=== PATIENT | male | born 1965 | race Caucasian/White ===

== ENCOUNTER 2024-04-05 08:03 | Outpatient (CLI) | payer MEDICAID, SELFPAY | END 2024-04-05 08:04 | disposition home or self-care (01) | PROVIDERS: PCP Internal Medicine; Visit Provider Internal Medicine | DX: E78.5 Hyperlipidemia, unspecified (principal); I10 Essential (primary) hypertension; Z12.5 Encounter for screening for malignant neoplasm of prostate | CPT/HCPCS: 80053; 80061; G0103 ==

== ENCOUNTER 2024-07-11 21:09 | Outpatient (CLI) | payer MEDICAID, SELFPAY ==
--- NOTE | 2024-07-19 12:03 | W.PM.SLEEP ---
Sleep Study Details Details Interpreting Provider: Stephenie Date of Sleep Study: 07/11/24 Sleep Study Details: STUDY TYPE:? Hospital-based, attended, CPAP titration ? BMI:? 40.2 ORDERING PROVIDER:? Tiffany INDICATION:? Concern about sleep apnea ? SLEEP SUMMARY:? 211 minutes total sleep time RESPIRATORY SUMMARY:? Mean oxygen awake 94 asleep 91 minimum 78 7.6 minutes oxygen between 80 and 88% AHI 20.6 per CMS guideline, 33 per rule 1A REM AHI was 85. Note entire study was done in the nonsupine position for the diagnostic portion CPAP titration was performed up to a pressure of 6 which decreased AHI to 0 per CMS guideline and 4.4 for rule 1A and included nonsupine REM sleep. PERIODIC LIMB MOVEMENTS OF SLEEP:? Pre treatment index 14.4, index with arousal 0 Post treatment index 62.2, index with arousal 1.3 CARDIAC:? Cardiac awake 72 asleep 69 no arrhythmias noted IMPRESSION:? Severe obstructive sleep apnea with significant REM dependency. The study was done in the nonsupine position. CPAP titration was effective at obtaining nonsupine REM sleep and controlling all apneas at a pressure of 6 RECOMMENDATION: Initiate AutoSet CPAP at a pressure of 5-17. Weight loss is also recommended
== END 2024-07-11 21:10 | disposition home or self-care (01) ==
PROVIDERS: PCP Internal Medicine; Visit Provider Otolaryngology
DX: G47.33 Obstructive sleep apnea (adult) (pediatric) (principal)
CPT/HCPCS: 95811

== ENCOUNTER 2024-10-28 16:30 | Outpatient (RCR) | payer MEDICAID, SELFPAY ==
--- NOTE | 2024-09-23 17:37 | PT.OPEX ---
[facility] Outpatient Eval PT [facility] Outpatient Eval Start: 09/23/24 15:13 Freq: Status: Active Protocol: Document 09/23/24 15:13 VMS (Rec: 09/23/24 17:31 VMS [id number]) E-signed By Leatha Curtis Physical Therapy Outpatient Evaluation Insurance Information Recert Due Date 12/16/24 Insurance Name Medicaid Medical Diagnosis Achilles Insertional Tendinopathy Treating Diagnosis L calf/ankle pain Muscle weakness Imaging Report X-rays 08/31/2024: Information Demonstrate 2 heel spurs on posterior calcaneus. 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 Alas is a 59 year M with complaints of L achilles/heel pain. He presents today in a walking boot. Date of onset: Initially started 3 years ago but that episode resolved without intervention. A couple of months ago is when most current episode started. Aggravating Factors: walking, standing for extended periods of time, climbing ladders, stairs, first few steps in the morning or after rest Easing Factors: rest, stay off of foot, heat, ibuprofen , prescribed anti-inflammatory. Tried steroid 3 weeks ago which did not help Method of Injury: Insidious Radiation: Denies Numbness / Tingling: Denies Progression: same Falls: Denies History of Ankle Injuries: Denies Review of Systems: History obtained from chart review, health history form, and the patient. I am only responding to those symptoms which are directly relevant to my consultation. Recommend the patient follow up with their primary/referring provider for other symptoms. 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 not Objective Other/Pertinent Functional Tests: Objective Gait: no PF on L side, increased trunk sway, decreased stance time on L CKC DF: R: 4 cm; L: 2 cm Palpation: tender to palpation on posterior calcaneus, slight tenderness throughout medial and lateral ankles below malleoli but no tenderness in proximal achilles tendon Edema: Figure of Eight --R: 63 cm; L: 64.5 cm JPA: Talocrural: Anterior: WFL bilat Posterior: WFL bilat Distraction: WFL bilat Subtalar: Lateral: WFL bilat Medial: WFL bilat PROM: Ankle: PF: R: 41 deg: L: 30 deg DF (straight knee/gastroc): R: -10 deg; L: -10 deg DF (bent knee): R:10 deg ;L: -1 deg Eversion: R: 15 deg; L: 10 deg Inversion: R: 30 deg; L: 30 deg Strength: Ankle: PF: R: 5/5; L: 4/5 DF: R: 5/5; L: 4-/5 Eversion: 5/5 bilat Inversion: 5/5 bilat Knee: Quadriceps: 5/5 bilat Hamstrings: 5/5 bilat Hip: IR: 5/5 bilat ER: 5/5 bilat Flexion: 5/5 bilat Special Tests: Achilles Tendinopathy: Muscle trifecta: (+) Painful arc sign (+) Manzanares test (-) Inversion Ankle Sprain: Anterior drawer: (-) Talar tilt test:(-) Inversion stress test: (-) ER stress test (high):(-) Squeeze test (high):(-) Achilles Rupture: Manzanares test: (-) Gap test: (-) Functional Test LEFS: 40 / 80 = 50.0 % Performed & Score Assessment Assessment/ 2024-09-23: Initial Evaluation Assessment & PT Impression Impression: Mr. Alas is a pleasant 59 year male presenting to outpatient physical therapy with primary complaint of L achilles pain. Pertinent physical examination findings include tenderness to palpation at the superior and inferior aspects of the calcaneus, pain with AROM into pf/df, impaired DF/PF ROM, impaired CKC DF, and ankle weakness. Functionally, the patient is limited in activities including standing, walking, climbing ladders, ascending/descending stairs and participation in work-related activities. He requires skilled physical therapy in order to address the above impairments, improve patients symptom status, and assist him in returning to his prior level of function. Barriers to Learning: None Primary Functional standing, walking, navigating stairs, climbing ladders, Limitations work-related activities Plan of Care Rehabilitation Good Potential Physical Therapy STG: Goals 1. Patient will be independent with HEP by the end of 4 weeks. 2. Patient will demonstrate improved gastroc length as demonstrated by an increase in at least 10 deg of PROM DF by the end of 4 weeks. LT. Patient will demonstrate at least 9 point increase ( MCID) in LEFS score by the end of 12 weeks to demonstrate improved overall function. 2. Patient will demonstrate improved bilateral gastroc length by at least 20 deg by the end of 12 weeks to demonstrate improved overall function. 3. Patient will be able to walk for at least 30 min with no greater than 3/10 pain by the end of 12 weeks. 4. Patient will be able to drive for at least 2 hours with no greater than 3/10 pain upon first steps by the end of 12 weeks. 5. Patient will be able to navigate stairs reciprocally with no greater than 3/10 pain by the end of 12 weeks. 6. Patient will be able to climb ladder with no greater than 3/10 pain by the end of 12 weeks. Coordination/ Referral Source Communication With Treatment Plan/ Joint Mobilization,Manual Therapy,Neuromuscular Re-ed, Direct Interventions Therapeutic Activities,Therapeutic Exercises Frequency/Duration 1x/week for 12 weeks Patient Will Be Completion of LTG(s),Independent w/HEP,Independently Discharged From Progressing Therapy Evaluation Billing Untimed Code 38 Treatment Minutes Complexity Low Certification Information Initial 09/23/24 Certification Date Ending Certification 12/16/24 Date Provider Signature Yes Required Provider Signature POC & Medical Necessity Shows Agreement With Physician NPI Number Write NPI# Here Physician Comment/ : Change Physician Signature Please Sign/Date Here & Date Requested
== END 2025-01-27 08:59 | disposition home or self-care (01) ==
PROVIDERS: PCP Internal Medicine; Visit Provider Podiatrist
DX: M76.60 Achilles tendinitis, unspecified leg (principal); M25.572 Pain in left ankle and joints of left foot; Z51.89 Encounter for other specified aftercare
CPT/HCPCS: 97110; 97140; 97161